=== PATIENT | female | born 1975 | race American Indian/Alaskan Native ===

== ENCOUNTER 2020-02-05 19:13 | Emergency (ER) | payer BC ==
[2020-02-05 19:18] VITALS: BP 137/97
--- NOTE | 2020-02-05 20:53 | XRay Report ---
CHEST / ABDOMEN 2 VIEW INDICATION / CLINICAL INFORMATION: constipation abd pain. COMPARISON: None available. FINDINGS: SUPPORT DEVICES: None. HEART / MEDIASTINUM: No significant abnormality. LUNGS / PLEURA: No significant pulmonary or pleural abnormality. No pneumothorax. TUBES / LINES: None. BOWEL GAS PATTERN: Nonobstructive bowel gas pattern. Moderate amount of stool throughout the colon rosario ggesting constipation. FREE AIR / EXTRALUMINAL GAS: None seen. ADDITIONAL FINDINGS: No significant additional findings. IMPRESSION: 1. No acute findings. Signer Name: Catarino Osorio MD Signed: 02/05/2020 8:49 PM Workstation Name: [id number]
--- NOTE | 2020-02-05 21:24 | Emergency Department Report ---
ED Abdominal Pain HPI - General Chief Complaint: Abdominal Pain Stated Complaint: CONSTIPATION, INDIGESTION Time Seen by Provider: 02/05/20 20:21 Source: patient Mode of arrival: Ambulatory Limitations: No Limitations - History of Present Illness Initial Comments: 44-year-old [place] female with emerge department complaining of a 1 to 2-week history of various episodes of constipation which appears to be improving after her visit to the urgent care and taking Colace but she feels that there is more stool than to to be relieved. Ports no hematemesis no hematochezia no hematuria no fevers, chills, sweats no no vomiting. She reports having some vague vague episodes of spastic abdominal pain but she does have Bentyl at home to help with those symptoms. MD Complaint: abdominal pain -: Gradual Location: diffuse Radiation: none Migration to: no migration Severity: mild Quality: dull Consistency: constant Worsens With: nothing Associated Symptoms: denies other symptoms. denies: constipation, dysuria, hematuria, anorexia - Related Data Allergies Allergy/AdvReac Type Severity Reaction Status Date / Time No Known Allergies Allergy Unverified 02/05/20 19:27 ED Review of Systems ROS: Stated complaint: CONSTIPATION, INDIGESTION Other details as noted in HPI Comment: All other systems reviewed and negative ED Past Medical Hx - Past Medical History Previous Medical History?: No - Surgical History Past Surgical History?: No - Social History Smoking Status: Never Smoker Substance Use Type: None ED Physical Exam - General Limitations: No Limitations General appearance: alert, in no apparent distress - Head Head exam: Present: atraumatic, normocephalic - Eye Eye exam: Present: normal appearance, PERRL, EOMI Pupils: Present: normal accommodation - ENT ENT exam: Present: normal exam, mucous membranes moist - Neck Neck exam: Present: normal inspection, full ROM - Respiratory Respiratory exam: Present: normal lung sounds bilaterally. Absent: respiratory distress, wheezes, rales, rhonchi, chest wall tenderness, accessory muscle use, decreased breath sounds - Cardiovascular Cardiovascular Exam: Present: regular rate, normal rhythm. Absent: systolic murmur, diastolic murmur, rubs, gallop - GI/Abdominal GI/Abdominal exam: Present: soft, normal bowel sounds. Absent: distended, tenderness, hyperactive bowel sounds, hypoactive bowel sounds, organomegaly, bruit - Extremities Exam Extremities exam: Present: normal inspection, full ROM - Back Exam Back exam: Present: normal inspection - Neurological Exam Neurological exam: Present: alert, oriented X3, CN II-XII intact, normal gait - Psychiatric Psychiatric exam: Present: normal affect, normal mood - Skin Skin exam: Present: warm, dry, intact, normal color. Absent: rash ED Course Vital Signs 02/05/20 19:17 Temperature 98.3 F Pulse Rate 79 Respiratory 16 Rate Blood Pressure 137/97 O2 Sat by Pulse 98 Oximetry ED Medical Decision Making - Radiology Data Radiology results: report reviewed [facility] [address] [place] [address] XRay Report Signed Patient: NELSON PALMA MR#: [id number] : 1975 Acct:[id number] Age/Sex: 44 / F ADM Date: 02/05/20 Loc: ED Attending Dr: Ordering Physician: ADILENE COLLINS Date of Service: 02/05/20 Procedure(s): XR abd series w cxr 1V Accession Number(s): [id number] cc: ADILENE COLLINS Fluoro Time In Minutes: CHEST / ABDOMEN 2 VIEW INDICATION / CLINICAL INFORMATION: constipation abd pain. COMPARISON: None available. FINDINGS: SUPPORT DEVICES: None. HEART / MEDIASTINUM: No significant abnormality. LUNGS / PLEURA: No significant pulmonary or pleural abnormality. No pneumothorax. TUBES / LINES: None. BOWEL GAS PATTERN: Nonobstructive bowel gas pattern. Moderate amount of stool throughout the colon suggesting constipation. FREE AIR / EXTRALUMINAL GAS: None seen. ADDITIONAL FINDINGS: No significant additional findings. IMPRESSION: 1. No acute findings. Signer Name: Catarino Osorio MD Signed: 02/05/2020 8:49 PM Workstation Name: [id number] Transcribed By: Dictated By: CATARINO OSORIO III Electronically Authenticated By: CATARINO OSORIO III Signed Date/Time: 02/05/202048 DD/ 47 TD/TT: Critical care attestation.: If time is entered above; I have spent that time in minutes in the direct care of this critically ill patient, excluding procedure time. ED Disposition Clinical Impression: Abdominal pain Disposition: DC-01 TO HOME OR SELFCARE Is pt being admited?: No Does the pt Need Aspirin: No Condition: Stable Instructions: Abdominal Pain (ED) Referrals: PRIMARY CARE, [Primary Care Provider] - 3-5 Days [facility] [Provider Group] - 3-5 Days
== END 2020-02-05 21:33 | disposition home or self-care (01) ==
LOC: ED 19:13
DX: R10.84 Generalized abdominal pain (principal)
CPT/HCPCS: 74022; 99283